=== PATIENT | male | born 1985 | race Caucasian/White ===

== ENCOUNTER 2023-10-17 15:28 | Inpatient (IN) | payer MEDICAID ==
[~2023-10-17] VITALS: Ht 175.3 cm; Wt 84.1 kg
[2023-10-17 17:12] LABS: BASOPHILS % (AUTO) 0.2 % (0-1); EOSINOPHILS % (AUTO) 0 % (0-6); HEMATOCRIT 42.5 % (42.0-52.0); LYMPHOCYTES # (AUTO) 0.3 X10'3 (1.1-4.8); LYMPHOCYTES % (AUTO) 2.9 % (21-51); MEAN CORPUSCULAR HGB CONC 32.9 g/dL (33.0-36.5); MEAN CORPUSCULAR VOLUME 106.3 FL (78-98); MEAN PLATELET VOLUME 7.9 FL (7.4-10.4); MONOCYTES # (AUTO) 1.4 X10'3 (0-0.9); MONOCYTES % (AUTO) 13.4 % (2-12); NEUTROPHILS % (AUTO) 83.5 % (42-75); PLATELET COUNT 159 X10'3 (140-440); RED CELL DISTRIBUTION WIDTH 12.7 % (11.5-14.5); WHITE BLOOD COUNT 10.8 X10'3 (4.5-11.0)
[2023-10-17 17:34] LABS: ALBUMIN 4.4 G/DL (3.4-5.0); ANION GAP 31 (8-16); BLOOD UREA NITROGEN 48 MG/DL (7-18); CALCIUM 10.3 MG/DL (8.5-10.1); CHLORIDE 98 MMOL/L (99-107); GLUCOSE 85 MG/DL (70-104); POTASSIUM 4.7 MMOL/L (3.5-5.1); PRO BRAIN NATRIURETIC PEPTIDE 601 PG/ML (0-125); SODIUM 144 MMOL/L (135-145); eCRCL 41 ML/MIN; eGFR 30 ML/MIN
[2023-10-17 17:35] LABS: TOTAL CARBON DIOXIDE 14.7 MMOL/L (24-32)
[2023-10-17] MEDS: bacitracin 15gm ointment TP ONE (18:49)
[2023-10-17] MEDS: ringers solution, lactated 1000ml IV soln IV ONE (18:49)
[2023-10-17] MEDS: normal saline 1000ML IV soln IVB ONE (18:49)
[2023-10-17 19:02] LABS: CREATINE KINASE 394 U/L (39-308)
[2023-10-17] MEDS: diphenhydrAMINE 50 mg/ml inj IV ONE (19:53)
[2023-10-17 23:34] LABS: HEMOGLOBIN A1C 4.1 % (4.5-6.2)
[2023-10-17] MEDS: ringers solution, lacted 1,000 ML IV SCH (23:39)
[2023-10-18 00:01] LABS: ALANINE AMINOTRANSFERASE 153 U/L (12-78); ALBUMIN 3.2 G/DL (3.4-5.0); ALBUMIN/GLOBULIN RATIO 0.9 (1.1-1.5); ALKALINE PHOSPHATASE 71 IU/L (46-116); ANION GAP 18 (8-16); ASPARTATE AMINO TRANSFERASE 58 U/L (10-37); BILIRUBIN,TOTAL 1.2 MG/DL (0.1-1.0); BLOOD UREA NITROGEN 31 MG/DL (7-18); BUN/CREATININE RATIO 20.9 (10.0-20.0); CALCIUM 8.6 MG/DL (8.5-10.1); CHLORIDE 106 MMOL/L (99-107); CHOLESTEROL 242 MG/DL (0-200); CREATINE KINASE 226 U/L (39-308); CREATININE 1.48 MG/DL (0.60-1.10); GLUCOSE 67 MG/DL (70-104); HDL CHOLESTEROL 122 MG/DL (35-60); LDL CHOLESTEROL 73 MG/DL (50-100); POTASSIUM 3.6 MMOL/L (3.5-5.1); SODIUM 145 MMOL/L (135-145); THYROID STIMULATING HORMONE 0.48 ulU/ml (0.34-4.50); TOTAL CARBON DIOXIDE 20.9 MMOL/L (24-32); TOTAL PROTEIN 6.8 G/DL (6.4-8.2); TRIGLYCERIDES 87 MG/DL (20-135); eCRCL 67 ML/MIN; eGFR 53 ML/MIN
[2023-10-18] MEDS ORDERED: magnesium Cl slow-release 64mg tablet PO PRN (00:15)
[2023-10-18] MEDS ORDERED: potassium Cl 20 mEq SR tablet PO PRN (00:15)
[2023-10-18] MEDS ORDERED: magnesium sulf-water 2g/50mL 50 ML IV PRN (00:15)
[2023-10-18] MEDS ORDERED: potassium Cl 40MEQ/1/2NS 520ml 520 ML IV PRN (00:15)
[2023-10-18] MEDS ORDERED: magnesium hydroxide 30ml (MOM) UD suspension PO PRN (00:15)
[2023-10-18] MEDS ORDERED: mag hydrox/Alum hydrox/simeth 30ml oral suspension PO PRN (00:15)
[2023-10-18] MEDS ORDERED: ondansetron/PF 4mg/2ml inj IV PRN (00:15)
[2023-10-18] MEDS ORDERED: magnesium sulf-water 4G/100mL 100 ML IV PRN (00:15)
[2023-10-18 00:52] LABS: BILIRUBIN,URINE MODERATE (Neg); CLARITY,URINE CLEAR (Clear); COLOR,URINE YELLOW (Yellow); GLUCOSE, URINE NEGATIVE (Neg); KETONES,URINE >=80 mg/dl (Neg); LEUKOCYTE ESTERASE ,URINE NEGATIVE (Neg); NITRITES, URINE NEGATIVE (Neg); OCCULT BLOOD,URINE NEGATIVE (Neg); PROTEIN,URINE 30 mg/dl (Neg)
[2023-10-18 00:54] LABS: UA COLLECTION TYPE URINAL
[2023-10-18 00:59] LABS: SQUAMOUS EPITHELIAL CELL,UR FEW /LPF (FEW)
[2023-10-18 01:00] LABS: BACTERIA,URINE FEW /HPF (Neg); RBC,URINE 0-2 /HPF (0-2); URINE AMPHETAMINE SCREEN NEGATIVE (Neg); URINE BARBITUATE SCREEN NEGATIVE (Neg); URINE BENZODIAZEPINES SCREEN NEGATIVE (Neg); URINE CANNABINOID SCREEN POSITIVE (Neg); URINE COCAINE SCREEN NEGATIVE (Neg); URINE METHADONE SCREEN NEGATIVE (Neg); URINE OPIATE SCREEN NEGATIVE (Neg); URINE PHENCYCLIDINE SCREEN NEGATIVE (Neg); WBC,URINE 0-4 /HPF (0-4)
[2023-10-18] MEDS ORDERED: LORazepam 1 MG tablet PO PRN (03:20)
[2023-10-18] MEDS ORDERED: LORazepam 2 mg/ml vial IV PRN (03:20)
[2023-10-18] MEDS ORDERED: haloperidol 5mg tablet PO PRN (03:20)
[2023-10-18] MEDS: LORazepam 2 mg/ml vial IV ONE (03:28)
[2023-10-18] MEDS: docusate sod 100mg capsule PO SCH (08:00)
[2023-10-18] MEDS ORDERED: mupirocin 2% cream 15gm TP SCH (08:00)
[2023-10-18] MEDS: K and/or MAG REPLACEMENT MC SCH (08:00)
[2023-10-18] MEDS: heparin, porcine 5000 units/ml vial SQ SCH (09:30)
[2023-10-18] MEDS: multivitamins, therapeutics tablet PO SCH (09:31)
[2023-10-18 13:30] VITALS: RESP 27; O2SAT 99
[2023-10-18] MEDS: mupirocin 2% ointment 22GM TP SCH (13:38)
[2023-10-18 15:00] VITALS: BP 129/84; PULSE 91; RESP 24; TEMP 97.7; O2SAT 99
[2023-10-18] MEDS ORDERED: aminophylline 250mg/10ml inj. IV PRN (17:05)
[2023-10-18] MEDS ORDERED: metoprolol tartrate 1mg/ml inj IV PRN (17:05)
[2023-10-18] MEDS ORDERED: nitroGLYCERIN 0.4mg SUBLingual tab SL PRN (17:05)
[2023-10-18] MEDS: acetaminophen 325mg tablet PO PRN (19:32)
[2023-10-18 22:00] VITALS: BP 103/76; PULSE 92; RESP 20; TEMP 97.5; O2SAT 97
[2023-10-19] VITALS (15 sets, daily range): BP systolic 116–136; BP diastolic 73–86; PULSE 68–126; RESP 14–23; TEMP 97.4–98.7; O2SAT 97–100
[2023-10-19 06:10] LABS: BASOPHILS % (AUTO) 0.7 % (0-1); EOSINOPHILS # (AUTO) 0.1 X10'3 (0-0.9); EOSINOPHILS % (AUTO) 1.6 % (0-6); HEMATOCRIT 31.5 % (42.0-52.0); HEMOGLOBIN 10.6 g/dl (14.0-17.9); LYMPHOCYTES # (AUTO) 0.8 X10'3 (1.1-4.8); LYMPHOCYTES % (AUTO) 22.4 % (21-51); MEAN CORPUSCULAR HEMOGLOBIN 35.1 PG (27.0-31.0); MEAN CORPUSCULAR HGB CONC 33.6 g/dL (33.0-36.5); MEAN CORPUSCULAR VOLUME 104.6 FL (78-98); MEAN PLATELET VOLUME 7.8 FL (7.4-10.4); MONOCYTES # (AUTO) 0.7 X10'3 (0-0.9); MONOCYTES % (AUTO) 19.5 % (2-12); NEUTROPHILS # (AUTO) 1.9 X10'3 (1.8-7.7); NEUTROPHILS % (AUTO) 55.8 % (42-75); PLATELET COUNT 109 X10'3 (140-440); RED BLOOD COUNT 3.01 X10'6 (4.70-6.10); RED CELL DISTRIBUTION WIDTH 12.4 % (11.5-14.5); WHITE BLOOD COUNT 3.5 X10'3 (4.5-11.0)
[2023-10-19 06:35] LABS: ALANINE AMINOTRANSFERASE 99 U/L (12-78); ALBUMIN 2.4 G/DL (3.4-5.0); ALBUMIN/GLOBULIN RATIO 0.7 (1.1-1.5); ALKALINE PHOSPHATASE 63 IU/L (46-116); ANION GAP 12 (8-16); ASPARTATE AMINO TRANSFERASE 43 U/L (10-37); BILIRUBIN,TOTAL 0.8 MG/DL (0.1-1.0); BLOOD UREA NITROGEN 10 MG/DL (7-18); BUN/CREATININE RATIO 9.9 (10.0-20.0); CALCIUM 8.7 MG/DL (8.5-10.1); CHLORIDE 105 MMOL/L (99-107); CREATININE 1.01 MG/DL (0.60-1.10); GLUCOSE 74 MG/DL (70-104); SODIUM 141 MMOL/L (135-145); TOTAL CARBON DIOXIDE 24.5 MMOL/L (24-32); TOTAL PROTEIN 5.7 G/DL (6.4-8.2); eCRCL 98 ML/MIN; eGFR 82 ML/MIN
[2023-10-19] MEDS ORDERED: regadenoson 0.4mg/5ml syringe IV PRN (08:30)
[2023-10-19] MEDS ORDERED: metoprolol tartrate 1mg/ml inj IV PRN (08:30)
[2023-10-19] MEDS ORDERED: nitroGLYCERIN 0.4mg SUBLingual tab SL PRN (08:30)
[2023-10-19] MEDS ORDERED: aminophylline 250mg/10ml inj. IV PRN (08:30)
[2023-10-19] MEDS: regadenoson 0.4mg/5ml syringe IV PRN (10:06)
[2023-10-19] MEDS ORDERED: CEPH-585 PO (12:26)
[2023-10-19] MEDS: potassium Cl 20 mEq SR tablet PO PRN (13:52)
[2023-10-19] MEDS ORDERED: ceFAZolin/D5W- 1GM premix 50 ML IV SCH (16:10)
[2023-10-20] VITALS (7 sets, daily range): BP systolic 130–140; BP diastolic 66–86; PULSE 64–83; RESP 17–20; TEMP 97.6–98.6; O2SAT 98–100
[2023-10-20] MEDS: ceFAZolin/D5W- 1GM premix 50 ML IV SCH (01:29)
[2023-10-20 06:02] LABS: EOSINOPHILS # (AUTO) 0.1 X10'3 (0-0.9); EOSINOPHILS % (AUTO) 1.9 % (0-6); HEMOGLOBIN 10.6 g/dl (14.0-17.9); LYMPHOCYTES # (AUTO) 0.9 X10'3 (1.1-4.8); LYMPHOCYTES % (AUTO) 31.1 % (21-51); MEAN CORPUSCULAR HEMOGLOBIN 35.3 PG (27.0-31.0); MEAN CORPUSCULAR HGB CONC 34.1 g/dL (33.0-36.5); MEAN CORPUSCULAR VOLUME 103.5 FL (78-98); MEAN PLATELET VOLUME 7.8 FL (7.4-10.4); MONOCYTES # (AUTO) 0.6 X10'3 (0-0.9); MONOCYTES % (AUTO) 21.2 % (2-12); NEUTROPHILS # (AUTO) 1.3 X10'3 (1.8-7.7); NEUTROPHILS % (AUTO) 44.8 % (42-75); PLATELET COUNT 120 X10'3 (140-440); RED CELL DISTRIBUTION WIDTH 12.2 % (11.5-14.5)
[2023-10-20 06:27] LABS: ALANINE AMINOTRANSFERASE 86 U/L (12-78); ALBUMIN 2.4 G/DL (3.4-5.0); ALBUMIN/GLOBULIN RATIO 0.7 (1.1-1.5); ALKALINE PHOSPHATASE 60 IU/L (46-116); ANION GAP 8 (8-16); ASPARTATE AMINO TRANSFERASE 34 U/L (10-37); BILIRUBIN,TOTAL 0.5 MG/DL (0.1-1.0); BLOOD UREA NITROGEN 5 MG/DL (7-18); BUN/CREATININE RATIO 7.2 (10.0-20.0); CALCIUM 8.5 MG/DL (8.5-10.1); CHLORIDE 105 MMOL/L (99-107); CREATININE 0.69 MG/DL (0.60-1.10); GLUCOSE 90 MG/DL (70-104); MAGNESIUM 1.6 MG/DL (1.5-2.4); PHOSPHORUS 1.6 MG/DL (2.3-4.5); POTASSIUM 3.8 MMOL/L (3.5-5.1); SODIUM 140 MMOL/L (135-145); TOTAL CARBON DIOXIDE 26.9 MMOL/L (24-32); TOTAL PROTEIN 5.7 G/DL (6.4-8.2); eCRCL 144 ML/MIN; eGFR > 90 ML/MIN
[2023-10-21] VITALS (8 sets, daily range): BP systolic 118–134; BP diastolic 71–93; PULSE 66–91; RESP 15–20; TEMP 98.3–99.4; O2SAT 93–99
[2023-10-21 06:13] LABS: EOSINOPHILS # (AUTO) 0.1 X10'3 (0-0.9); EOSINOPHILS % (AUTO) 2.4 % (0-6); HEMATOCRIT 33.5 % (42.0-52.0); HEMOGLOBIN 11.5 g/dl (14.0-17.9); LYMPHOCYTES % (AUTO) 28.5 % (21-51); MEAN CORPUSCULAR HEMOGLOBIN 35.6 PG (27.0-31.0); MEAN CORPUSCULAR HGB CONC 34.5 g/dL (33.0-36.5); MEAN CORPUSCULAR VOLUME 103.3 FL (78-98); MEAN PLATELET VOLUME 8.2 FL (7.4-10.4); MONOCYTES # (AUTO) 0.8 X10'3 (0-0.9); NEUTROPHILS # (AUTO) 1.7 X10'3 (1.8-7.7); NEUTROPHILS % (AUTO) 47.1 % (42-75); PLATELET COUNT 145 X10'3 (140-440); RED BLOOD COUNT 3.24 X10'6 (4.70-6.10); RED CELL DISTRIBUTION WIDTH 12.2 % (11.5-14.5); WHITE BLOOD COUNT 3.6 X10'3 (4.5-11.0)
[2023-10-21 06:34] LABS: ALANINE AMINOTRANSFERASE 72 U/L (12-78); ALBUMIN 2.5 G/DL (3.4-5.0); ALBUMIN/GLOBULIN RATIO 0.7 (1.1-1.5); ALKALINE PHOSPHATASE 60 IU/L (46-116); ANION GAP 4 (8-16); ASPARTATE AMINO TRANSFERASE 40 U/L (10-37); BILIRUBIN,TOTAL 0.3 MG/DL (0.1-1.0); BLOOD UREA NITROGEN 6 MG/DL (7-18); BUN/CREATININE RATIO 9.5 (10.0-20.0); CHLORIDE 108 MMOL/L (99-107); CREATININE 0.63 MG/DL (0.60-1.10); GLUCOSE 92 MG/DL (70-104); POTASSIUM 3.4 MMOL/L (3.5-5.1); SODIUM 142 MMOL/L (135-145); TOTAL CARBON DIOXIDE 29.7 MMOL/L (24-32); eCRCL 157 ML/MIN; eGFR > 90 ML/MIN
[2023-10-21] MEDS: thiamine 100mg tablet PO SCH (08:57)
[2023-10-22 02:00] VITALS: BP 116/73; PULSE 62; RESP 19; TEMP 98.2; O2SAT 96
[2023-10-22 06:17] LABS: EOSINOPHILS # (AUTO) 0.1 X10'3 (0-0.9); EOSINOPHILS % (AUTO) 2.4 % (0-6); HEMATOCRIT 36.3 % (42.0-52.0); HEMOGLOBIN 12.4 g/dl (14.0-17.9); LYMPHOCYTES # (AUTO) 1.1 X10'3 (1.1-4.8); MEAN CORPUSCULAR HEMOGLOBIN 34.9 PG (27.0-31.0); MEAN CORPUSCULAR HGB CONC 34.1 g/dL (33.0-36.5); MEAN CORPUSCULAR VOLUME 102.3 FL (78-98); MEAN PLATELET VOLUME 7.8 FL (7.4-10.4); MONOCYTES # (AUTO) 0.8 X10'3 (0-0.9); MONOCYTES % (AUTO) 21.1 % (2-12); NEUTROPHILS # (AUTO) 1.8 X10'3 (1.8-7.7); NEUTROPHILS % (AUTO) 46.5 % (42-75); PLATELET COUNT 195 X10'3 (140-440); RED BLOOD COUNT 3.55 X10'6 (4.70-6.10); RED CELL DISTRIBUTION WIDTH 12.4 % (11.5-14.5); WHITE BLOOD COUNT 3.9 X10'3 (4.5-11.0)
[2023-10-22 06:27] LABS: ALANINE AMINOTRANSFERASE 73 U/L (12-78); ALBUMIN 2.6 G/DL (3.4-5.0); ALBUMIN/GLOBULIN RATIO 0.7 (1.1-1.5); ALKALINE PHOSPHATASE 60 IU/L (46-116); ANION GAP 7 (8-16); ASPARTATE AMINO TRANSFERASE 32 U/L (10-37); BILIRUBIN,TOTAL 0.3 MG/DL (0.1-1.0); BLOOD UREA NITROGEN 7 MG/DL (7-18); BUN/CREATININE RATIO 10.3 (10.0-20.0); CALCIUM 9.2 MG/DL (8.5-10.1); CHLORIDE 107 MMOL/L (99-107); CREATININE 0.68 MG/DL (0.60-1.10); GLUCOSE 88 MG/DL (70-104); MAGNESIUM 1.8 MG/DL (1.5-2.4); PHOSPHORUS 3.2 MG/DL (2.3-4.5); POTASSIUM 3.8 MMOL/L (3.5-5.1); SODIUM 143 MMOL/L (135-145); TOTAL PROTEIN 6.1 G/DL (6.4-8.2); eCRCL 146 ML/MIN; eGFR > 90 ML/MIN
[2023-10-22 07:00] VITALS: BP 116/76; PULSE 69; RESP 19; TEMP 98; O2SAT 97
[2023-10-22] MEDS: folic acid 1mg tablet PO SCH (08:34)
[2023-10-22 11:00] VITALS: BP 116/76; PULSE 63; RESP 17; TEMP 97.1; O2SAT 98
[2023-10-22 15:00] VITALS: BP 117/80; PULSE 88; RESP 17; TEMP 98.3; O2SAT 97
[2023-10-22 18:00] VITALS: BP 123/78; PULSE 68; RESP 20; TEMP 98.6; O2SAT 98
[2023-10-22 20:00] VITALS: RESP 20; O2SAT 98
[2023-10-23] VITALS: BP 128/70; PULSE 75; RESP 16; TEMP 100.4; O2SAT 98
[2023-10-23 06:19] LABS: EOSINOPHILS # (AUTO) 0.1 X10'3 (0-0.9); EOSINOPHILS % (AUTO) 2.3 % (0-6); HEMATOCRIT 36.4 % (42.0-52.0); HEMOGLOBIN 12.3 g/dl (14.0-17.9); MEAN CORPUSCULAR HEMOGLOBIN 34.5 PG (27.0-31.0); MEAN CORPUSCULAR HGB CONC 33.7 g/dL (33.0-36.5); MEAN CORPUSCULAR VOLUME 102.4 FL (78-98); MEAN PLATELET VOLUME 7.7 FL (7.4-10.4); MONOCYTES # (AUTO) 1.1 X10'3 (0-0.9); MONOCYTES % (AUTO) 24.3 % (2-12); NEUTROPHILS # (AUTO) 2.1 X10'3 (1.8-7.7); NEUTROPHILS % (AUTO) 48.4 % (42-75); PLATELET COUNT 243 X10'3 (140-440); RED BLOOD COUNT 3.55 X10'6 (4.70-6.10); RED CELL DISTRIBUTION WIDTH 12.6 % (11.5-14.5); WHITE BLOOD COUNT 4.4 X10'3 (4.5-11.0)
[2023-10-23 06:49] LABS: ALANINE AMINOTRANSFERASE 65 U/L (12-78); ALBUMIN 2.7 G/DL (3.4-5.0); ALBUMIN/GLOBULIN RATIO 0.8 (1.1-1.5); ALKALINE PHOSPHATASE 67 IU/L (46-116); ANION GAP 7 (8-16); ASPARTATE AMINO TRANSFERASE 40 U/L (10-37); BILIRUBIN,TOTAL 0.3 MG/DL (0.1-1.0); BLOOD UREA NITROGEN 7 MG/DL (7-18); CALCIUM 9.2 MG/DL (8.5-10.1); CHLORIDE 108 MMOL/L (99-107); GLUCOSE 86 MG/DL (70-104); MAGNESIUM 2.2 MG/DL (1.5-2.4); PHOSPHORUS 4.1 MG/DL (2.3-4.5); POTASSIUM 3.9 MMOL/L (3.5-5.1); SODIUM 142 MMOL/L (135-145); TOTAL CARBON DIOXIDE 26.8 MMOL/L (24-32); TOTAL PROTEIN 6.2 G/DL (6.4-8.2); eCRCL 142 ML/MIN; eGFR > 90 ML/MIN
[2023-10-23 07:00] VITALS: BP 117/75; PULSE 60; RESP 16; TEMP 97.6; O2SAT 97
[2023-10-23 11:00] VITALS: BP 115/76; PULSE 63; RESP 18; TEMP 98.3; O2SAT 97
[2023-10-23] MEDS ORDERED: ACET-1008 PO (12:42)
[2023-10-23 15:00] VITALS: BP 130/78; PULSE 64; RESP 20; TEMP 98.2; O2SAT 97
== END 2023-10-23 16:00 | disposition home or self-care (01) | DRG 469 ==
LOC: ER 15:29 → ED HOLD 10-18 00:42 → UNDOADMIN 10-18 00:42 → PCU 3S 10-18 13:13
PROVIDERS: ADMIT Student in an Organized Health Care Education/Training Program; ATTEND Internal Medicine
PROC: 4A12XM4 Monitoring of Cardiac Stress, External Approach (ICD-10-PCS; principal; 2023-10-19)
PROC: 3E033HZ Introduction of Radioactive Substance into Peripheral Vein, Percutaneous Approach (ICD-10-PCS; 2023-10-19)
DX: N17.0 Acute kidney failure with tubular necrosis (principal); E87.20 Acidosis, unspecified; L03.115 Cellulitis of right lower limb; L03.116 Cellulitis of left lower limb; S91.301A Unspecified open wound, right foot, initial encounter; E86.0 Dehydration; R07.89 Other chest pain; D75.89 Other specified diseases of blood and blood-forming organs; R44.3 Hallucinations, unspecified; D64.9 Anemia, unspecified; E87.6 Hypokalemia; F12.10 Cannabis abuse, uncomplicated; S91.302A Unspecified open wound, left foot, initial encounter; X58.XXXA Exposure to other specified factors, initial encounter; Y93.89 Activity, other specified; Y92.89 Other specified places as the place of occurrence of the external cause; Y99.8 Other external cause status; Z59.00 Homelessness unspecified
CPT/HCPCS: 36415; 71045; 78452; 80048; 80053; 80061; 80305; 81001; 82550; 82607; 82948; 83036; 83605; 83735; 83880; 84100; 84443; 84484; 85025; 87040; 87081; 93005; 93017; 93306; 97116; 97162; 97530; 99285; A4349; A4649; A6253; A6258; A6260; A6446; A6449; A9500; G0378; J0690; J1200; J1644; J2060; J2785; J7030; J7040; J7120

== ENCOUNTER 2024-05-20 15:18 | Emergency (ER) | payer MEDICAID ==
[~2024-05-20] VITALS: Ht 170.2 cm; Wt 63.6 kg
[~2024-05-20 15:18] MED LIST: ACET-1008 PO; CEPH-585 PO
[2024-05-20 17:40] VITALS: BP 154/94; PULSE 73; RESP 18; TEMP 97.6; O2SAT 97
== END 2024-05-20 18:12 | disposition home or self-care (01) ==
LOC: ER 15:18
DX: S61.412A Laceration without foreign body of left hand, initial encounter (principal); S81.811A Laceration without foreign body, right lower leg, initial encounter; X58.XXXA Exposure to other specified factors, initial encounter; Y93.89 Activity, other specified; Y92.89 Other specified places as the place of occurrence of the external cause; Y99.8 Other external cause status
CPT/HCPCS: 99283